=== PATIENT | female | born 1965 ===

== ENCOUNTER 2017-12-01 15:01 | Emergency (ER) | payer SELFPAY ==
[2017-12-01 15:13] VITALS: RESP 20; TEMP 97.6
[2017-12-01] MEDS ORDERED: PREDNISONE 20 MG TAB PO ONE (15:28)
[2017-12-01] MEDS ORDERED: KETOROLAC TROMETHAMINE 30 MG/ML SOL IV ONE (15:28)
[2017-12-01] MEDS ORDERED: KETOROLAC TROMETHAMINE 30 MG/ML SOL ONE (15:39)
[2017-12-01] MEDS ORDERED: PREDNISONE 20 MG TAB ONE (15:39)
[2017-12-01 16:44] LABS: APPEARANCE,URINE Cloudy; BILIRUBIN,URINE NEGATIVE (NEGATIVE); COLOR,URINE Yellow; GLUCOSE, URINE (UA) NEGATIVE (NEGATIVE); KETONES,URINE NEGATIVE (NEGATIVE); LEUKOCYTE ESTERASE ,URINE 1+ (NEGATIVE); NITRATE,URINE POSITIVE (NEGATIVE); OCCULT BLOOD,URINE 3+ (NEG-TRACE)
[2017-12-01] MEDS ORDERED: CYCLOBENZAPRINE 10 MG TAB PO ONE (16:51)
[2017-12-01] MEDS ORDERED: CYCLOBENZAPRINE 10 MG TAB ONE (16:53)
[2017-12-01 16:58] LABS: CRYSTALS NEGATIVE (0-3 AVE/HPF); EPITHELIAL CELLS 0-2 (SQUAMOUS); RBC,URINE 200-250+ (0-3AV/HPF); WBC,URINE 20-30 (0-5AV/HPF)
[2017-12-01 16:59] LABS: AMPHETAMINES POSITIVE (NEGATIVE); BACTERIA TRACE (< 1+); BARBITUATES NEGATIVE (NEGATIVE); BENZODIAZEPINES NEGATIVE (NEGATIVE); CANNABINOL(THC) NEGATIVE (NEGATIVE); COCAINE(COC) NEGATIVE (NEGATIVE); METHADONE NEGATIVE (NEGATIVE); METHAMPHETAMINES POSITIVE (NEGATIVE); OPIATES(OPI) NEGATIVE (NEGATIVE); OXYCODONE(OXY) NEGATIVE (NEGATIVE); PROPOXYPHENE(PPX) NEGATIVE (NEGATIVE); TRICYCLIC ANTIDEPRESSANTS NEGATIVE (NEGATIVE)
[2017-12-01] MEDS ORDERED: CIPROFLOXACIN HCL 500 MG TAB PO ONE (17:11)
[2017-12-01] MEDS ORDERED: CIPROFLOXACIN HCL 500 MG TAB PO SCH (17:15)
[2017-12-01 17:41] VITALS: BP 106/72; PULSE 72; O2SAT 96
== END 2017-12-01 17:34 | disposition home or self-care (01) | DRG 556 ==
LOC: ED 15:01
DX: M25.529 Pain in unspecified elbow (principal); N39.0 Urinary tract infection, site not specified; W19.XXXA Unspecified fall, initial encounter; M54.5 Low back pain; Z72.89 Other problems related to lifestyle; F19.90 Other psychoactive substance use, unspecified, uncomplicated
CPT/HCPCS: 72120; 72170; 80305; 81001; 87077; 87088; 87186; 96372; 99283; J1885; A9270-GY